=== PATIENT | female | born 1950 | race Caucasian/White ===

== ENCOUNTER 2017-02-25 06:44 | Observation (INO) | payer OTHER ==
[~2017-02-25] VITALS: Ht 177.8 cm; Wt 101.9 kg
--- NOTE | ~2017-02-25 | P ---
[facility] [place] [address] PROCEDURE REPORT Name: RHIANNON RUBIO Room #: 212-P [facility] M.R.#: [id number] Admission: 02/25/17 Attend Phys: Yoav Oliva MD Discharge: 02/26/17 Date of : 46 Report #: [id number] THIS REPORT FOR: //name// CC: Dillon Oliva DATE OF SERVICE: 02/26/2017 PREOPERATIVE DIAGNOSIS: Nonischemic cardiomyopathy. POSTOPERATIVE DIAGNOSIS: Nonischemic cardiomyopathy. HISTORY: The patient is a 66-year-old female with a longstanding history of a nonischemic cardiomyopathy, status post prior ICD implantation that was extracted after the device became infected in the setting of a dialysis catheter infection. She has been on optimal medical therapy for several years. Her heart function has not improved and therefore she is here for ICD implantation for primary prevention of sudden cardiac . ANESTHESIA: The patient underwent MAC anesthesia with no anesthesia-related complications. DESCRIPTION OF PROCEDURE: The patient underwent informed consent. We discussed the details of the procedure including the risks, which include but not limited to bleeding, infection, vascular damage, cardiac perforation and pneumothorax. She understood these risks and was willing to proceed. As such, the patient was brought to the EP laboratory in a fasting and sedated state. She was prepped and draped in a sterile fashion. She received IV antibiotics prior to initiation of the procedure. Due to her prior instrumentation of her right subclavian vessel, a venogram was performed to look for patency of this vessel. The venogram showed that the vessel was wide open. As such, I injected 20 mL of lidocaine below the level of the right clavicle. Incision was made. A pocket was created over the prepectoral fascia and access was obtained once to the right axillary vein. The sheath was positioned using the modified Seldinger technique and lead was positioned in the right ventricular apex with adequate pacing and sensing thresholds. The lead was sutured to the prepectoral fascia, connected to the device and placed in the pocket. The pocket was closed in 3 layers using 2-0 for the deep layer, 3-0 for the mid layer and 4-0 for the subcuticular layer. Surgical glue was placed to the outer skin layer. The patient awoke neurologically and hemodynamically intact with no complications and no significant bleeding. The implanted device was a [employer] model #DQ570672G, serial #[id number]. The RV lead was [employer] model #____, serial #[id number]. This lead demonstrated an R-wave of 5.8 millivolts, pacing impedance of 480 ohms and a pacing threshold 0.5 volts at 0.5 milliseconds. The device was programmed to the VVI 40 mode. The VF zone was [address] [address] PROCEDURE REPORT Name: RHIANNON RUBIO Room #: 212-P [facility] Gonzalo MOctavioROctavio#: [id number] Admission: 02/25/17 Attend Phys: Yoav Oliva MD Discharge: 02/26/17 Date of : 46 Report #: [id number] set at greater than 220 beats per minute with ATP while charging followed by max output shocks. The VT zone was set at 181 beats per minute with 3 rounds of bursts followed by 3 rounds of ramp followed by max output shocks. CONCLUSIONS: 1. Successful ICD implantation. 2. Satisfactory right ventricular pacing and sensing thresholds. <ELECTRONICALLY SIGNED> By: Yoav Oliva MD 03/03/17 1330 1024 1133 Yoav Oliva MD /nt
[2017-02-25] MEDS ORDERED: ASPIR 8181 M1 PO (07:06)
[2017-02-25] MEDS ORDERED: ACCUNEB SO1.25 MG/1 PO (07:06)
[2017-02-25] MEDS ORDERED: BUMETANIDE0.25 MG/1 PO (07:07)
[2017-02-25] MEDS ORDERED: CETIRIZINE HCL5 MG PO (07:08)
[2017-02-25] MEDS ORDERED: COREG3.125 MG PO (07:08)
[2017-02-25] MEDS ORDERED: FLONASE 0.05%50 MCG PO (07:09)
[2017-02-25] MEDS ORDERED: HUMALOG100 UNIT/2 SQ (07:09)
[2017-02-25] MEDS ORDERED: FOLIC ACID1 MG PO (07:09)
[2017-02-25] MEDS ORDERED: ANUSOL-HC25 MG PO (07:10)
[2017-02-25] MEDS ORDERED: LANTUS100 UNIT/M SQ (07:10)
[2017-02-25] MEDS ORDERED: K-DUR10 MEQ PO (07:11)
[2017-02-25] MEDS ORDERED: RENA-VITE RX T1 EACH PO (07:11)
[2017-02-25] MEDS ORDERED: LEVOTHYROXIN0.025 MG PO (07:11)
[2017-02-25] MEDS ORDERED: VITAMIN D3400 UNIT PO (07:12)
[2017-02-25 07:14] LABS: ABSOLUTE NEUTROPHILS 4.3 thou/uL (1.4-8.2); BASOPHILS 0.7 % (0.0-2.0); EOSINOPHILS 2.6 % (0.0-3.0); HEMATOCRIT 39.4 % (37.0-47.0); HEMOGLOBIN 12.9 gm/dL (12.0-15.0); LYMPHOCYTES 32.4 % (24.0-44.0); MCH 30.1 pg (26.0-34.0); MCHC 32.6 g/dL (28.0-37.0); MCV 92.2 fL (80.0-100.0); MONOCYTES 6.3 % (1.0-8.0); PLATELET COUNT 186 thou/uL (150-400); RBC 4.27 mil/uL (4.20-5.00); RDW 14.8 % (10.5-14.5); WBC 7.4 thou/uL (4.0-11.0)
[2017-02-25 07:22] LABS: MANUAL DIFF NO
[2017-02-25 07:25] LABS: CALCIUM 9.5 mg/dL (8.5-10.1); CREATININE 2.3 mg/dL (0.6-1.0); POTASSIUM 4.2 mmol/L (3.5-5.1)
[2017-02-25 07:26] VITALS: BP 118/70
[2017-02-25 07:26] LABS: APTT 26.3 Seconds (24.5-32.8); PROTIME 10.6 Seconds (9.3-11.4)
[2017-02-25 07:31] LABS: ALBUMIN 3.5 g/dL (3.4-5.0); TOTAL BILIRUBIN 0.3 mg/dL (<0.1-1.0); TOTAL PROTEIN 7.6 g/dL (6.4-8.2)
[2017-02-25 11:48] VITALS: BP 97/60
[2017-02-25 16:45] VITALS: BP 109/66
[2017-02-25 19:43] VITALS: BP 123/81
[2017-02-25 23:37] VITALS: BP 128/76
[2017-02-26 03:14] VITALS: BP 108/71
[2017-02-26 04:29] LABS: CALCIUM 8.9 mg/dL (8.5-10.1); CREATININE 1.8 mg/dL (0.6-1.0); POTASSIUM 3.8 mmol/L (3.5-5.1)
[2017-02-26 07:13] VITALS: BP 113/70
[2017-02-26 10:55] VITALS: BP 113/70
== END 2017-02-26 12:53 | disposition home or self-care (01) ==
LOC: CATH 06:44 → 2N 11:36 → CATH 11:40 → 2N 02-26 12:53
PROVIDERS: Internal Medicine Cardiovascular Disease
DX: I42.9 Cardiomyopathy, unspecified (principal); I13.0 Hypertensive heart and chronic kidney disease with heart failure and stage 1 through stage 4 chronic kidney disease, or unspecified chronic kidney disease; E11.22 Type 2 diabetes mellitus with diabetic chronic kidney disease; N18.9 Chronic kidney disease, unspecified; I50.9 Heart failure, unspecified; I48.3 Typical atrial flutter; Z72.89 Other problems related to lifestyle; Z79.4 Long term (current) use of insulin

== ENCOUNTER → 2017-07-13 | Outpatient (CLI) | payer OTHER ==
[~2017-07-13] VITALS: Ht 177.8 cm; Wt 90.7 kg
[~2017-07-13] MED LIST: ACCUNEB SO1.25 MG/1 PO; ANUSOL-HC25 MG PO; ASPIR 8181 M1 PO; BUMETANIDE0.25 MG/1 PO; BUMETANIDE2 M1 PO; CETIRIZINE HCL5 MG PO; COREG3.125 MG PO; FLONASE 0.05%50 MCG PO; FOLIC ACID1 MG PO; HUMALOG100 UNIT/2 SQ; HUMALOG100 UNIT/2 SUBQ; K-DUR10 MEQ PO; LANTUS100 UNIT/M SQ; LEVOTHYROXIN0.025 MG PO; PAIN RELIEVER500 M3 PO; RENA-VITE RX T1 EACH PO; SYNTHROID25 MCG PO; VITAMIN D3400 UNIT PO; XARELTO15 MG PO
--- NOTE | ~2017-07-13 | P ---
[facility] [place] [address] PROCEDURE REPORT Name: RHIANNON RUBIO Room #: REG DESMOND YuenOctavioMary.#: [id number] Admission: 07/13/17 Attend Phys: Yoav Oliva MD Discharge: Date of : 46 Report #: [id number] THIS REPORT FOR: //name// CC: Dillon Oliva DATE OF SERVICE: 07/21/2017 PROCEDURE: Supraventricular tachycardia ablation. PREOPERATIVE DIAGNOSIS: Atrial flutter. POSTOPERATIVE DIAGNOSIS: Typical atrial flutter. HISTORY: The patient is a 66-year-old with history of nonischemic cardiomyopathy, status post recent reimplantation of an ICD on the right side. She was also noted at that time to have typical atrial flutter. She remained symptomatic with this and therefore, she is here for an ablation. ANESTHESIA: The patient underwent MAC anesthesia with no anesthesia-related complications. DESCRIPTION OF PROCEDURE: The patient underwent informed consent. We discussed the details of the procedure including the risks, which include but not limited to bleeding, stroke, NH, damage to the pilot station conduction system requiring permanent pacemaker. She understood these risks and was willing to proceed. As such, she was brought to the EP laboratory in a fasting and sedated state and prepped and draped in a sterile fashion. I injected lidocaine to the right groin and obtained access to the right femoral vein x 3 placing sheaths using the modified Seldinger technique. I placed an 8-Estonian and two 7-Estonian short sheaths. Next, under fluoroscopy, I placed a decapolar catheter into the coronary sinus and a halo catheter into the right atrium. At baseline, the patient was in typical atrial flutter with a ventricular cycle length of 710 milliseconds, atrial cycle length of 220 milliseconds with a proximal to distal activation along the coronary sinus and a counterclockwise activation along the Halo catheter. The QRS duration was 95 milliseconds. The QT interval was 355 milliseconds. Entrainment was performed from the right atrium along the Halo at around 6 o'clock. The PPI minus tachycardia cycle length was ____ milliseconds consistent with cavotricuspid isthmus dependent flutter. Next, I placed a ramp sheath and an 8 mm [employer] Anderson ablation catheter into the right atrium and created a detailed 3D geometry of the right atrium. Next ablation was performed at 70 cannon and 60 degrees and a continuous drag lesion was performed at 6 o'clock along the cavotricuspid isthmus and along [facility] [address] [place] [address] PROCEDURE REPORT Name: RHIANNON RUBIO Room #: REG [facility]#: [id number] Admission: 07/13/17 Attend Phys: Yoav Oliva MD Discharge: Date of : 46 Report #: [id number] the posterior aspect of the line, there was acute termination. Post ablation, I checked and there was evidence of bidirectional block with a transisthmus conduction time of 165 milliseconds. Next, atrial burst pacing was performed and AV block was noted at 440 milliseconds and AV inna ERP was noted at 400 milliseconds at a [address] cycle length. Sinus node recovery time was performed and this was 1230 milliseconds. Isuprel was initiated at 1 mcg per minute. An AV block was noted at 410 milliseconds and AV inna ERP was noted at 310 milliseconds at a [address] cycle length. The isoproterenol was increased to 2 mcg per minute and AV block was noted at 360 milliseconds and AV inna ERP was noted at 280 milliseconds with [address] cycle length. Isoproterenol was discontinued and the patient remained in sinus rhythm with persistence of bidirectional block as evidenced by pacing both medial and lateral to the line as well as differential pacing performed from Halo 1, 2, 3 and 4. Post ablation, the patient remained in sinus rhythm with a sinus cycle length of 720 milliseconds, NJ interval 210 milliseconds, QRS duration 95 milliseconds, QT interval 430 milliseconds. As such, all catheters and sheaths were pulled and hemostasis was obtained. Of note, the ICD was interrogated prior to the ablation and all therapies were disabled. Post ablation, the device was reinterrogated and found to be functioning normally and therapies were reenabled. CONCLUSIONS: 1. Successful ablation of typical atrial flutter with evidence of bidirectional block. 2. Normal sinoatrial inna function. 3. Normal atrioventricular inna function. 4. Normal His-Purkinje function. 5. No other arrhythmias induced with isoproterenol infusion. 6. Successful implantable cardioverter defibrillator reprogramming. <ELECTRONICALLY SIGNED> By: Yoav Oliva MD 08/01/17 1622 [id number] Yoav Oliva MD /nt
[2017-07-13 07:05] LABS: ABSOLUTE NEUTROPHILS 3.8 thou/uL (1.4-8.2); BASOPHILS 0.9 % (0.0-2.0); EOSINOPHILS 5.5 % (0.0-3.0); HEMATOCRIT 38.4 % (37.0-47.0); HEMOGLOBIN 12.5 gm/dL (12.0-15.0); LYMPHOCYTES 28.8 % (24.0-44.0); MCH 28.4 pg (26.0-34.0); MCHC 32.5 g/dL (28.0-37.0); MCV 87.5 fL (80.0-100.0); PLATELET COUNT 209 thou/uL (150-400); POLYS 56.8 % (36.0-66.0); RBC 4.38 mil/uL (4.20-5.00); RDW 14.7 % (10.5-14.5); WBC 6.6 thou/uL (4.0-11.0)
[2017-07-13 07:08] VITALS: BP 127/69
[2017-07-13 07:15] LABS: CREATININE 1.6 mg/dL (0.6-1.0); POTASSIUM 3.9 mmol/L (3.5-5.1)
[2017-07-13 07:20] LABS: APTT 27.5 Seconds (24.5-32.8); PROTIME 10.7 Seconds (9.3-11.4)
[2017-07-13 07:21] LABS: ALBUMIN 3.2 g/dL (3.4-5.0); TOTAL BILIRUBIN 0.3 mg/dL (<0.1-1.0); TOTAL PROTEIN 7.2 g/dL (6.4-8.2)
== END | disposition home or self-care (01) ==
LOC: CATH 06:31
PROVIDERS: Internal Medicine Cardiovascular Disease
DX: I48.3 Typical atrial flutter (principal); I42.8 Other cardiomyopathies; E78.00 Pure hypercholesterolemia, unspecified; J44.9 Chronic obstructive pulmonary disease, unspecified; Z82.49 Family history of ischemic heart disease and other diseases of the circulatory system; E11.22 Type 2 diabetes mellitus with diabetic chronic kidney disease; N18.9 Chronic kidney disease, unspecified; I50.9 Heart failure, unspecified; I48.92 Unspecified atrial flutter
CPT/HCPCS: 70005